=== PATIENT | female | born 2005 | race Hispanic/Latino ===

== ENCOUNTER 2024-03-21 16:17 | Emergency (ER) | payer BC, MEDICAID ==
[~2024-03-21] VITALS: Ht 154.9 cm; Wt 59.9 kg
[2024-03-21 16:20] VITALS: BP 109/81; PULSE 62; RESP 18; TEMP 98.8
[2024-03-21] MEDS ORDERED: ACET-66 PO (17:59)
== END 2024-03-21 18:15 | disposition home or self-care (01) ==
LOC: EDH 16:17
DX: S60.222A Contusion of left hand, initial encounter (principal); E11.9 Type 2 diabetes mellitus without complications; W22.8XXA Striking against or struck by other objects, initial encounter; Y93.89 Activity, other specified; Y92.89 Other specified places as the place of occurrence of the external cause; Y99.8 Other external cause status
CPT/HCPCS: 73120